=== PATIENT | female | born 1965 | race Caucasian/White ===

== ENCOUNTER 2016-09-12 21:40 | Emergency (ER) | payer OTHER ==
[~2016-09-12] VITALS: Ht 165.1 cm; Wt 90.5 kg
[~2016-09-12 21:40] MED LIST: AMLO5TAB4 PO; ATEN-51; NITR-58; ONDA4TAB35 PO; PANT40TA3 PO
[2016-09-12 21:54] VITALS: Ht 165.1 cm; Wt 90.5 kg
[2016-09-12 23:13] LABS: ADD SCAN DIFF NO
[2016-09-12 23:16] LABS: EOSINOPHILS # 0.1 10^3/ul (0.0-0.5); HEMATOCRIT 36.7 % (37.0-47.0); HEMOGLOBIN 11.4 g/dl (12.0-16.0); LYMPHOCYTES # 1.2 10^3/ul (0.8-2.9); LYMPHOCYTES % 22.5 % (15.0-51.0); MEAN CORPUSCULAR HEMOGLOBIN 26.1 pg (29.0-33.0); MEAN CORPUSCULAR HGB CONC 31.1 g/dl (32.0-37.0); MEAN CORPUSCULAR VOLUME 84.2 fl (82.0-101.0); MEAN PLATELET VOLUME 10.2 fl (7.4-10.4); MONOCYTE # 0.3 10^3/ul (0.3-0.9); MONOCYTES % 5.8 % (0.0-11.0); NEUTROPHIL # 3.8 10^3/ul (1.6-7.5); NEUTROPHILS % 69.3 % (39.0-77.0); PLATELET COUNT 148 10^3/UL (140-415); RED BLOOD COUNT 4.36 10^6/ul (4.20-5.40); RED CELL DISTRIBUTION WIDTH 14.6 % (11.5-14.5); WHITE BLOOD COUNT 5.5 10^3/ul (4.8-10.8)
[2016-09-12 23:22] LABS: ADD UMIC YES; URINE BILIRUBIN (Dip) NEGATIVE (NEGATIVE); URINE BLOOD (Dip) 3+ (NEGATIVE); URINE COLOR YELLOW (YELLOW); URINE GLUCOSE (Dip) NEGATIVE (NEGATIVE); URINE KETONES (Dip) NEGATIVE (NEGATIVE); URINE LEUKOCYTE ESTERASE (Dip) NEGATIVE (NEGATIVE); URINE NITRITE (Dip) NEGATIVE (NEGATIVE); URINE TOTAL PROTEIN (Dip) TRACE (NEGATIVE); URINE UROBILINOGEN (Dip) 0.2 E.U./dL (0.1-1.0)
[2016-09-12 23:32] LABS: ALBUMIN 4.1 g/dl (3.3-4.9); ALBUMIN/GLOBULIN RATIO 1.36; BILIRUBIN,INDIRECT 0.2 mg/dl (0-1.1); BILIRUBIN,TOTAL 0.2 mg/dl (0.2-1.3); CALCIUM 8.4 mg/dl (8.4-10.2); CREATININE 0.85 mg/dl (0.44-1.00); POTASSIUM 3.9 mmol/L (3.5-5.1); TOTAL PROTEIN 7.1 g/dl (6.1-8.1)
[2016-09-12 23:36] LABS: BACTERIA,URINE FEW; SQUAMOUS EPITHELIAL CELL,UR FEW; URINE RBCS >200 /HPF (0)
--- NOTE | 2016-09-13 00:24 | RADRPT ---
PROCEDURE: Ultrasound pelvis CLINICAL INDICATION: Abdominal Pain TECHNIQUE: Multiple callejas scale and color Doppler images of the pelvis were obtained transabdominal ly and transvaginally. Images were reviewed PACS workstation COMPARISON: None FINDINGS: The uterus is identified, measuring 8.2 x 4.8 x 6.0 cm. There are hyperechoic uterine structures me asuring 1.4 x 1.1 x 1.1 cm, and 1.4 x 1.1 x 0.9 cm. The smaller of these lesions projects adjacent t o or within the endometrial canal. These demonstrate acoustic enhancement. The endometrial canal oth erwise appears within normal limits, measuring 6 mm in thickness. The ovaries are not well seen. There is no evidence of free fluid. There is no abnormal adnexal mass. IMPRESSION: 1. 2 nonspecific uterine hyperechoic rounded lesions are identified, 1.4 x 1.1 cm in size. 1 of the se projects within or adjacent to the endometrial canal, and could reflect a submucosal fibroid or p olyp. Hysteroscopy, hysterosonogram, or follow-up is recommended. 2. No free fluid or adnexal mass. The ovaries are not well seen. RPTAT: HBST .Glen Santana MD, Date Time Electronically viewed and signed by .Glen Santana MD, on 09/13/2016 00:24 .T/
[2016-09-13] MEDS ORDERED: ONDANSETRON (ODT) 4 MG TAB ODT STA (00:37)
[2016-09-13] MEDS ORDERED: HYDROmorphONE 2 MG/ML SYG IM STA (00:37)
--- NOTE | 2016-09-13 00:50 | RADRPT ---
PROCEDURE: CT abdomen and pelvis without intravenous contrast. CLINICAL INDICATION: Pain. TECHNIQUE: CT of the abdomen/pelvis was performed utilizing axial images with reconstructions in s agittal and coronal planes. The administered radiation dose is CTDI 19.4 mGy, DLP 1181 mGy-cm. COMPARISON: 11/13/2014 FINDINGS: Visualized Chest: The visualized lung bases are clear. Abdomen: The spleen, pancreas, and adrenal glands are unremarkable. The liver is diffusely decreased in at tenuation, compatible with hepatic steatosis. The kidneys are without hydronephrosis. A few small stones are noted within the right kidney. There is no evidence of bowel obstruction. The appendix is normal. No intra-abdominal free air is seen. There is no evidence of intra-abdominal adenopathy or free fluid. Pelvis: The There is no evidence of pelvic adenopathy. The uterus and ovaries are without enlargement. The urinary bladder is unremarkable. There is no pelvic free fluid. Osseous structures: Unremarkable. IMPRESSION: No acute findings. Hepatic steatosis. Right nephrolithiasis. RPTAT: HIKT .Stepan Kerr MD, MD Date Time Electronically viewed and signed by .Stepan Kerr MD, on 09/13/2016 00:50 .T/
--- NOTE | 2016-09-13 01:16 | ERD ---
ER Documentation Chief Complaint Date/Time DATE: 09/13/16 TIME: 01:12 Chief Complaint AP with diarrhea and nausea x1 wk, vaginal bleed x2 days HPI Patient is a 50-year-old female who presents with diarrhea and nausea but no vomiting for the past 6 days. She also admits to vaginal bleeding that she has had for several months. She states she has a history of cholecystectomy. She also has a history of fatty liver and diabetes. She denies fever. She is tolerating oral intake. She denies any blood in her stool. She denies any dark or tarry stools. She denies any hemoptysis. She denies any dysuria hematuria or increased urinary frequency. ROS All systems reviewed and are negative except as per history of present illness. Medications Home Meds Active Scripts Ondansetron Hcl* (Zofran* ODT) 4 mg -ODT Tab.disper, 4 MG PO Q4H Y for NAUSEA AND OR VOMITING, #14 TAB Prov:MYA DONIS MD 11/28/14 Atenolol* (Atenolol*) 25 Mg Tablet, 25 MG .ROUTE DAILY, #20 TAB Prov:SARBJIT ROSAS MD 11/23/14 Amlodipine Besylate* (Norvasc*) 5 Mg Tablet, 5 MG PO BID, #20 TAB Prov:SARBJIT ROSAS MD 11/23/14 Nitrofurantoin Monohyd Macrocr* (Macrobid*) 100 Mg Capsr, 100 MG .ROUTE BID for 14 Days, CAP Prov:SARBJIT ROSAS MD 11/23/14 Reported Medications Pantoprazole* (Protonix*) 40 Mg Tablet.dr, 40 MG PO DAILY, TAB 11/23/14 Allergies Allergies: Coded Allergies: acetaminophen (Verified Allergy, Severe, 11/28/14) codeine (Verified Allergy, Severe, 11/28/14) erythromycin base (Verified Allergy, Severe, 11/28/14) hydrocodone (Verified Allergy, Severe, 11/28/14) morphine (Verified Allergy, Mild, NAUSEA, 11/28/14) PMhx/Soc History of Surgery: Yes (; Tonsllectomy, cholecystectomy) Anesthesia Reaction: No Hx Neurological Disorder: No Hx Respiratory Disorders: Yes (Asthma) Hx Cardiac Disorders: Yes (HTN) Hx Psychiatric Problems: Yes (PTSD) Hx Miscellaneous Medical Probl: No (GERD) Hx Alcohol Use: No Hx Substance Use: Yes Hx Tobacco Use: No Smoking Status: Unknown if ever smoked FmHx Family History: diabetes Physical Exam Vitals Vital Signs Date Time Temp Pulse Resp B/P Pulse Ox O2 Delivery O2 Flow Rate FiO2 09/12/16 21:54 98.1 100 20 137/83 98 Physical Exam General: well developed, well nourished, alert, nontoxic, no distress Head: normocephalic, atraumatic Eyes: PERRL, normal conjunctiva Neck: Supple, nontender, no lymphadenopathy, no midline tenderness Respiratory: Clear to auscaultation bilaterally, speaks in full sentences, no use of accesory muscles or labored breathing, no rales, ronchi, or wheezing Cardiovascular: RRR, No murmurs GI: soft, non tender, non distended, negative murphys sign, negative mcburneys point tenderness, no cva tenderness bilaterally, no rebound or guarding Back: no midline tenderness, no step offs or bony abnormalities, sensation to light touch in tact Extremities: moving all extremities normally, normal gait, no edema Result Diagram: 09/12/16225209/12/162252 Results 24 hrs Laboratory Tests Test 09/12/16 22:35 09/12/16 22:53 Urine Color YELLOW Urine Clarity SL HAZY Urine pH 5.5 Urine Specific [place] >=1.030 Urine Ketones NEGATIVE Urine Nitrite NEGATIVE Urine Bilirubin NEGATIVE Urine Urobilinogen 0.2 E.U./dL Urine Leukocyte Esterase NEGATIVE Urine Microscopic RBC >200/HPF Urine Microscopic WBC 0-2/HPF Urine Squamous Epithelial Cells FEW Urine Bacteria FEW Urine Hemoglobin 3+ Urine Glucose NEGATIVE% Urine Total Protein TRACE White Blood Count 5.510^3/ul Red Blood Count 4.3610^6/ul Hemoglobin 11.4g/dl Hematocrit 36.7% Mean Corpuscular Volume 84.2fl Mean Corpuscular Hemoglobin 26.1pg Mean Corpuscular Hemoglobin Concent 31.1g/dl Red Cell Distribution Width 14.6% Platelet Count 40891^3/UL Mean Platelet Volume 10.2fl Neutrophils % 69.3% Lymphocytes % 22.5% Monocytes % 5.8% Eosinophils % 2.0% Basophils % 0.0% Nucleated Red Blood Cells % 0.0/100WBC Neutrophils # 3.810^3/ul Lymphocytes # 1.210^3/ul Monocytes # 0.310^3/ul Eosinophils # 0.110^3/ul Basophils # 0.010^3/ul Nucleated Red Blood Cells # 0.010^3/ul Sodium Level 138mmol/L Potassium Level 3.9mmol/L Chloride Level 106mmol/L Carbon Dioxide Level 21mmol/L Anion Gap 15 Blood Urea Nitrogen 19mg/dl Creatinine 0.85mg/dl Glucose Level 92mg/dl Calcium Level 8.4mg/dl Total Bilirubin 0.2mg/dl Direct Bilirubin 0.00mg/dl Indirect Bilirubin 0.2mg/dl Aspartate Amino Transf (AST/SGOT) 19IU/L Alanine Aminotransferase (ALT/SGPT) 30IU/L Alkaline Phosphatase 111IU/L Total Protein 7.1g/dl Albumin 4.1g/dl Globulin 3.00g/dl Albumin/Globulin Ratio 1.36 Lipase 92U/L Current Medications Medications (Trade) Dose Ordered Sig/Quique Route PRN Reason Start Time Stop Time Status Last Admin Dose Admin Hydromorphone HCl (Dilaudid) 2 mg ONCE STAT IM 09/13/16 00:37 09/13/16 00:39 DC 09/13/16 01:00 Ondansetron HCl (Zofran Odt) 4 mg ONCE STAT ODT 09/13/16 00:37 09/13/16 00:39 DC 09/13/16 01:00 Loperamide HCl (Imodium Cap) 2 mg ONCE ONCE PO 09/13/16 01:30 09/13/16 01:31 Procedures/MDM Patient presents with multiple complaints including vaginal bleeding, abdominal pain and diarrhea. Her vital signs are within normal limits. She is well- appearing in no distress. Her labs were within normal limits. CT scan of abdomen showed no acute process. Ultrasound of the pelvis showed2 nonspecific uterine hyperechoic rounded lesions are identified, 1.4 x 1.1 cm in size. 1 of these projects within or adjacent to the endometrial canal, and could reflect a submucosal fibroid or polyp. Hysteroscopy, hysterosonogram, or follow-up is recommended. She is hemodynamically stable. She was given Dilaudid and Zofran here in the emergency room with improvement of her symptoms. She was also given Imodium. At this time no evidence of any acute emergent process. She is discharged. Recommended this patient follow up with her primary care doctor within 48 hours or return to the emergency room for any worsening of symptoms. However this time I do believe there is suitable for outpatient management. I answered all their questions and they agreed with the plan and were discharged home. Departure Diagnosis: Primary Impression: Renal stone Additional Impressions: Viral gastroenteritis Dysfunctional uterine bleeding Condition: Stable CHANDRIKA GUEVARA PA-C Sep 13, 2016 01:16
[2016-09-13] MEDS ORDERED: LOPE2CAP PO (01:17)
[2016-09-13] MEDS ORDERED: LOPERAMIDE 2 MG CAP PO ONE (01:30)
[2016-09-13 01:36] VITALS: BP 109/63; PULSE 81; RESP 16; TEMP 98
== END 2016-09-13 01:37 | disposition home or self-care (01) ==
LOC: FTE 21:40
DX: N20.0 Calculus of kidney (principal); A08.4 Viral intestinal infection, unspecified; N93.8 Other specified abnormal uterine and vaginal bleeding; R11.0 Nausea; I10 Essential (primary) hypertension; J45.909 Unspecified asthma, uncomplicated
CPT/HCPCS: 36415; 74176; 76830; 76856; 80053; 81001; 81003; 83690; 85025; 96372; J1170; Z7502; Z7610